=== PATIENT | male | born 1960 | race Caucasian/White ===

== ENCOUNTER → 2021-01-21 | Outpatient (CLI) | payer OTHER ==
[~2021-01-21] MED LIST: COVID-19 VACC, MRNA(MODERNA)/PF 100 MCG/0.5 ML VIAL IM ONE
== END ==
LOC: VACCPMC 13:01
DX: Z23 Encounter for immunization (principal); Z20.822 Contact with and (suspected) exposure to COVID-19
CPT/HCPCS: 0011A; 91301

== ENCOUNTER → 2021-02-18 | Outpatient (CLI) | payer OTHER | END | disposition home or self-care (01) | LOC: VACCPMC 08:23 | DX: Z23 Encounter for immunization (principal); Z20.822 Contact with and (suspected) exposure to COVID-19 | CPT/HCPCS: 91301 ==

== ENCOUNTER 2025-07-04 10:47 | Inpatient (IN) | payer OTHER ==
[~2025-07-04] VITALS: Ht 170.2 cm; Wt 84.1 kg
[2025-07-04 11:25] VITALS: PULSE 80; RESP 20; TEMP 98.8
[2025-07-04] MEDS: SODIUM CHLORIDE 0.9% 1000ML 1,000 ML IV ONE (15:52)
[2025-07-04] MEDS: ACETAMINOPHEN 325 MG TAB PO ONE (16:29)
[2025-07-04 17:30] VITALS: BP 166/89; O2SAT 97
[2025-07-04] MEDS ORDERED: ASPIRIN CHEW81 MG PO (17:54)
[2025-07-04] MEDS ORDERED: WIXELA 250-501 EACH INH (17:54)
[2025-07-04] MEDS ORDERED: ATORVASTATIN CA20 MG PO (17:54)
[2025-07-04] MEDS ORDERED: ZEBETA10 MG PO (17:54)
[2025-07-04] MEDS: SODIUM CHLORIDE 0.9% 1000ML 1,000 ML IV SCH (18:08)
[2025-07-04 19:40] VITALS: BP 166/89; O2SAT 97
[2025-07-04 20:00] VITALS: BP 142/60; PULSE 81; PULSE 91; RESP 18; RESP 20; TEMP 100.1; O2SAT 94; O2SAT 98
[2025-07-04] MEDS: ACETAMINOPHEN 325 MG TAB PO PRN (20:37)
[2025-07-04] MEDS: ATORVASTATIN 40 MG TAB PO SCH (20:38)
[2025-07-05] VITALS (10 sets, daily range): BP systolic 116–166; BP diastolic 65–89; PULSE 73–97; RESP 17–20; TEMP 99.1–101.1; O2SAT 96–99
[2025-07-05 06:19] LABS: BASOPHILS % 0.2 % (0.0-1.0); EOSINOPHILS % 0.0 % (0.0-6.0); LYMPHOCYTES % 5.5 % (18.0-39.1); MONOCYTES % 10.3 % (4.4-11.3); NEUTROPHILS % 82.8 % (38.7-80.0); RED CELL DISTRIBUTION WIDTH 13.2 % (11.7-14.4)
[2025-07-05 06:47] LABS: EST GLOMERULAR FILTRATION RATE 78.0 ML/MIN (>=60)
[2025-07-05] MEDS: SALMETEROL XINAF/FLUTICASONE 250/50 MCG INHALER INH SCH (19:42)
[2025-07-06] VITALS (8 sets, daily range): BP systolic 132–144; BP diastolic 73–81; PULSE 60–87; RESP 18–20; TEMP 97.4–99; O2SAT 95–100
[2025-07-06 05:47] LABS: BASOPHILS % 0.3 % (0.0-1.0); EOSINOPHILS % 0.4 % (0.0-6.0); LYMPHOCYTES % 9.5 % (18.0-39.1); MONOCYTES % 11.0 % (4.4-11.3); NEUTROPHILS % 78.0 % (38.7-80.0); RED CELL DISTRIBUTION WIDTH 13.2 % (11.7-14.4)
[2025-07-06 06:12] LABS: EST GLOMERULAR FILTRATION RATE 81.0 ML/MIN (>=60)
[2025-07-06] MEDS: BISOPROLOL FUMARATE 10 MG TAB PO SCH (08:10)
[2025-07-07] VITALS: BP 133/73; PULSE 68; RESP 20; TEMP 98; O2SAT 99
[2025-07-07 04:00] VITALS: BP 159/80; PULSE 79; RESP 20; TEMP 99.6; O2SAT 97
[2025-07-07 06:51] VITALS: PULSE 72; RESP 20; O2SAT 95
[2025-07-07 08:33] VITALS: BP 119/73; PULSE 61; RESP 18; TEMP 98.6; O2SAT 98
[2025-07-07 08:43] VITALS: BP 119/73; PULSE 61; RESP 18; TEMP 98.6; O2SAT 98
[2025-07-07 13:32] VITALS: BP 120/63; PULSE 66; RESP 18; TEMP 98.1; O2SAT 97
== END 2025-07-07 15:00 | disposition home or self-care (01) | DRG 690 ==
LOC: FSED 11:29 → ERHOLD 15:59 → MED/SURG2 17:25
PROVIDERS: ADMIT Internal Medicine; ATTEND Internal Medicine
DX: N30.91 Cystitis, unspecified with hematuria (principal); E87.1 Hypo-osmolality and hyponatremia; I25.10 Atherosclerotic heart disease of native coronary artery without angina pectoris; I10 Essential (primary) hypertension; E78.5 Hyperlipidemia, unspecified; E83.51 Hypocalcemia; N41.9 Inflammatory disease of prostate, unspecified; Z79.82 Long term (current) use of aspirin; Z95.1 Presence of aortocoronary bypass graft; Z88.8 Allergy status to other drugs, medicaments and biological substances; Z87.891 Personal history of nicotine dependence
CPT/HCPCS: 36415; 74176; 80048; 80053; 81003; 83605; 85025; 87040; 87086; 94664; 94799; 99283; J0696; J7030